=== PATIENT | female | born 1965 | race Caucasian/White ===

== ENCOUNTER → 2016-07-28 | Outpatient (CLI) | payer BC ==
[~2016-07-28] MED LIST: CMD10 PO; CMD75 PO
[2016-07-28 15:19] LABS: INR 2.1 (0.9-1.1); PROTHROMBIN TIME (PATIENT) 23.4 SECONDS (9.0-12.0)
== END | disposition home or self-care (01) ==
LOC: C.LABSPEC 14:37
PROVIDERS: ATTEND Family Medicine
DX: I82.4Z1 Acute embolism and thrombosis of unspecified deep veins of right distal lower extremity (principal); E03.9 Hypothyroidism, unspecified

== ENCOUNTER → 2016-09-20 | Outpatient (CLI) | payer BC ==
--- NOTE | 2016-09-21 08:21 | MAMMOGRAPHY REPORT ---
BILATERAL DIGITAL SCREENING MAMMOGRAM TOMOSYNTHESIS WITH CAD: 09/20/2016 CLINICAL HISTORY: Routine screening. Patient has no complaints. TECHNIQUE: Breast tomosynthesis in addition to standard 2D mammography was performed. Current study was also evaluated with a Computer Aided Detection (CAD) system. COMPARISON: Comparison is made to exams dated: 09/30/2013 mammogram, 09/26/2012 mammogram, 08/25/2010 m ammogram, 09/07/2011 mammogram - , 09/12/2008, and 07/24/2014 mammogram - [facility]. BREAST COMPOSITION: The tissue of both breasts is heterogeneously dense, which may obscure small mas ses. FINDINGS: There is decreasing asymmetry in the upper outer quadrant of the left breast. No suspiciou s mass, architectural distortion or cluster of suspicious microcalcifications is seen. IMPRESSION: ACR BI-RADS CATEGORY 1: NEGATIVE There is no mammographic evidence of malignancy. A 1 year screening mammogram is recommended. The pa tient will receive written notification of the results. Approximately 10% of breast cancers are not detected with mammography. A negative mammographic report should not delay biopsy if a clinically suggestive mass is present. Esther Hall M.D. ay/:09/20/2016 17:27:35 [employer]ap Bods Developer: Vandana TRAVIS)(M), letter sent: Normal 1/2 BI-RADS Code: ACR BI-RADS Category 1: Negative
== END | disposition home or self-care (01) ==
LOC: C.MAMM 07:31
PROVIDERS: ATTEND Obstetrics & Gynecology
DX: Z12.31 Encounter for screening mammogram for malignant neoplasm of breast (principal)

== ENCOUNTER → 2016-11-08 | Outpatient (CLI) | payer BC ==
[2016-11-08 12:07] LABS: INR 2.9 (0.9-1.1); PROTHROMBIN TIME (PATIENT) 32.1 SECONDS (9.0-12.0)
[2016-11-08 12:16] LABS: THYROID STIMULATING HORMONE 0.484 uIu/ml (0.300-4.500)
== END | disposition home or self-care (01) ==
LOC: C.LABSPEC 11:20
PROVIDERS: ATTEND Family Medicine
DX: E03.9 Hypothyroidism, unspecified (principal); I82.4Z1 Acute embolism and thrombosis of unspecified deep veins of right distal lower extremity

== ENCOUNTER → 2017-03-13 | Outpatient (CLI) | payer BC ==
[2017-03-13 11:27] LABS: INR 2.2 (0.9-1.1)
[2017-03-13 11:33] LABS: THYROID STIMULATING HORMONE 1.06 uIu/ml (0.300-4.500)
== END | disposition home or self-care (01) ==
LOC: C.LABSPEC 11:04
PROVIDERS: ATTEND Family Medicine
DX: D68.4 Acquired coagulation factor deficiency (principal); E03.9 Hypothyroidism, unspecified

== ENCOUNTER → 2017-06-12 | Outpatient (CLI) | payer OTHER ==
[2017-06-12 11:37] LABS: INR 2.6 (0.9-1.1)
== END | disposition home or self-care (01) ==
LOC: C.LABSPEC 11:16
PROVIDERS: ATTEND Family Medicine
DX: D68.4 Acquired coagulation factor deficiency (principal); E03.9 Hypothyroidism, unspecified

== ENCOUNTER → 2017-07-03 | Outpatient (CLI) | payer OTHER ==
[2017-07-03 11:50] LABS: INR 4.2 (0.9-1.1)
== END | disposition home or self-care (01) ==
LOC: C.LABSPEC 11:14
PROVIDERS: ATTEND Family Medicine
DX: D68.4 Acquired coagulation factor deficiency (principal)

== ENCOUNTER → 2017-07-10 | Outpatient (CLI) | payer OTHER ==
[2017-07-10 12:15] LABS: INR 1.7 (0.9-1.1)
== END | disposition home or self-care (01) ==
LOC: C.LABSPEC 11:27
PROVIDERS: ATTEND Family Medicine
DX: D68.4 Acquired coagulation factor deficiency (principal)

== ENCOUNTER → 2017-11-22 | Outpatient (CLI) | payer OTHER ==
--- NOTE | 2017-11-22 13:52 | MAMMOGRAPHY REPORT ---
BILATERAL DIGITAL SCREENING MAMMOGRAM TOMOSYNTHESIS WITH CAD: 11/22/2017 CLINICAL HISTORY: Routine screening. Patient has no complaints. TECHNIQUE: The study was acquired using full field digital technology and interpreted from soft copy. Breast tomosynthesis in addition to standard 2D mammography was performed. Current study was also ev aluated with a Computer Aided Detection (CAD) system. COMPARISON: Comparison is made to exams dated: 09/20/2016 mammogram, 07/24/2014 mammogram, 09/30/2013 m ammogram, 09/26/2012 mammogram, 09/07/2011 mammogram, and 08/25/2010 mammogram - [facility]. BREAST COMPOSITION: The tissue of both breasts is heterogeneously dense, which may obscure small mass es. FINDINGS: No suspicious masses, calcifications, or areas of architectural distortion are noted in either breast . There has been no significant interval change compared to prior exams. Bilateral benign vascular c alcifications are noted. IMPRESSION: ACR BI-RADS CATEGORY 2: BENIGN There is no mammographic evidence of malignancy. A 1 year screening mammogram is recommended.( [id number]) The patient will receive written notification of the results. Some breast cancers are not detected with mammography. A negative mammographic report should not danny y biopsy if a clinically suggestive mass is present. Avis Steven M.D. ah/:11/22/2017 12:51:33 Foreclosure Field Inspector: RT Bailey(Arlin)(Elias)(BD), [facility] letter sent: Normal 1/2 BI-RADS Code: ACR BI-RADS Category 2: Benign
== END | disposition home or self-care (01) ==
LOC: C.MAMM 12:24
PROVIDERS: ATTEND Family Medicine
DX: Z12.31 Encounter for screening mammogram for malignant neoplasm of breast (principal)